=== PATIENT | male | born 1940 | race Caucasian/White ===

== ENCOUNTER → 2020-10-17 13:06 | Outpatient (CLI) | payer MEDICARE, SELFPAY ==
[2020-10-17 20:52] LABS: Total Iron Binding Capacity 296 ug/dL (261-462)
[2020-10-17 21:06] LABS: Add Manual Diff / Slide Review NO; Basophils Absolute Auto 100 /uL (0-100); Basophils Percent Auto 0.9 % (0-2); Eosinophils Absolute Auto 300 /uL (0-450); Eosinophils Percent Auto 3.3 % (2-4); Hematocrit 35.8 % (41-53); Hemoglobin 11.8 g/dL (13.5-17.5); Lymphocytes Absolute Auto 2000 /uL (1100-4500); Lymphocytes Percent Auto 23.8 % (25-40); Mean Corpuscular HGB Conc 32.8 % (30-36); Mean Corpuscular Hemoglobin 32.2 PG (26-34); Mean Corpuscular Volume 98.1 fL (80-100); Monocytes Absolute Auto 900 /uL (0-900); Monocytes Percent Auto 10.4 % (3-14); Neutrophils Absolute Auto 5100 /uL (1500-7000); Neutrophils Percent Auto 61.6 % (50-75); Platelet Count 264 X10^3/uL (150-400); Red Blood Cell Count 3.65 X10^6/uL (4.5-5.9); White Blood Cell Count 8.3 X10^3/uL (4.5-11.0)
[2020-10-17 21:14] LABS: Thyroid Stimulating Hormone 23.3 uIU/mL (0.47-4.68)
[2020-10-17 21:18] LABS: Ferritin 21 ng/mL (18-464)
[2020-10-18 05:01] LABS: Iron 85 ug/dL (49-181); Percent Iron Saturation 29 % (20-50)
== END ==
PROVIDERS: PCP Family Medicine; Visit Provider Family Medicine
DX: D64.9 Anemia, unspecified (principal); E03.8 Other specified hypothyroidism
CPT/HCPCS: 82728; 83540; 83550; 84443; 85025

== ENCOUNTER → 2020-12-31 11:56 | Outpatient (CLI) | payer MEDICARE, SELFPAY ==
[2020-12-31 21:26] LABS: Thyroid Stimulating Hormone 13.3 uIU/mL (0.47-4.68)
== END ==
PROVIDERS: PCP Family Medicine; Referring Provider Internal Medicine; Visit Provider Internal Medicine
DX: E03.8 Other specified hypothyroidism (principal)
CPT/HCPCS: 84443

== ENCOUNTER → 2021-03-12 11:04 | Outpatient (CLI) | payer MEDICARE, SELFPAY ==
[2021-03-12 20:15] LABS: Thyroid Stimulating Hormone 2.41 uIU/mL (0.47-4.68)
== END ==
PROVIDERS: PCP Family Medicine; Visit Provider Internal Medicine
DX: E03.8 Other specified hypothyroidism (principal); E06.3 Autoimmune thyroiditis
CPT/HCPCS: 84443

== ENCOUNTER → 2022-01-29 13:07 | Outpatient (CLI) | payer MEDICARE, SELFPAY ==
[2022-01-29 20:05] LABS: Add Manual Diff / Slide Review NO; Basophils Absolute Auto 100 /uL (0-100); Eosinophils Absolute Auto 200 /uL (0-450); Eosinophils Percent Auto 2.6 % (2-4); Lymphocytes Absolute Auto 1700 /uL (1100-4500); Lymphocytes Percent Auto 21.7 % (25-40); Mean Corpuscular HGB Conc 33.4 % (30-36); Mean Corpuscular Hemoglobin 32.3 PG (26-34); Mean Corpuscular Volume 96.9 fL (80-100); Monocytes Absolute Auto 700 /uL (0-900); Monocytes Percent Auto 8.8 % (3-14); Neutrophils Absolute Auto 5300 /uL (1500-7000); Neutrophils Percent Auto 65.9 % (50-75); Platelet Count 247 X10^3/uL (150-400); Red Blood Cell Count 3.41 X10^6/uL (4.5-5.9); Red Cell Distribution Width 14.4 % (11.6-14.8)
[2022-01-29 20:07] LABS: HEMOLYSIS < 15 (0-50); Iron 100 ug/dL (49-181)
[2022-01-29 20:10] LABS: Alanine Aminotransferase 20 IU/L (<50); Albumin 3.7 g/dL (3.5-5.0); Albumin Globulin Ratio 1.3 (1.0-2.8); Alkaline Phosphatase 65 U/L (38-126); Aspartate Aminotransferase 38 IU/L (17-59); BUN Creatinine Ratio 19.3 (6-22); Bilirubin Total 0.4 mg/dL (0.2-1.3); Blood Urea Nitrogen 22 mg/dL (9-20); Calcium 8.8 mg/dL (8.4-10.2); Carbon Dioxide 32 mmol/L (22-32); Chloride 101 mmol/L (98-107); Estimated Glomerular Filt Rate > 60 mL/min (>60); Globulin 2.9 g/dL (1.7-4.1); Glucose 110 mg/dL (80-110); HEMOLYSIS < 15 (0-50); Potassium 3.6 mmol/L (3.4-5.1); Sodium 137 mmol/L (137-145); Total Protein 6.6 g/dL (6.3-8.2)
[2022-01-29 20:18] LABS: Percent Iron Saturation 37 % (20-50); Total Iron Binding Capacity 273 ug/dL (261-462); Transferrin 221 mg/dL (206-381)
[2022-01-29 20:38] LABS: TSH w/ Reflex to FT4 1.38 uIU/mL (0.47-4.68)
[2022-01-29 20:57] LABS: Vitamin B12 391 pg/mL (239-931)
== END ==
PROVIDERS: PCP Physician Assistant; Visit Provider Internal Medicine
DX: E53.8 Deficiency of other specified B group vitamins (principal); R63.4 Abnormal weight loss
CPT/HCPCS: 80053; 82607; 83540; 83550; 84443; 85025

== ENCOUNTER → 2022-11-06 13:06 | Outpatient (CLI) | payer MEDICARE, SELFPAY ==
[2022-11-06 20:22] LABS: Free T4, Direct Thyroxine 1.41 ng/dL (0.78-2.19)
[2022-11-06 20:31] LABS: Blood Urea Nitrogen 27 mg/dL (9-20); Calcium 9.1 mg/dL (8.4-10.2); Carbon Dioxide 31 mmol/L (22-32); Chloride 99 mmol/L (98-107); Estimated Glomerular Filt Rate 49 mL/min (>60); Glucose 90 mg/dL (80-110); HEMOLYSIS < 15 (0-50); Sodium 136 mmol/L (137-145)
[2022-11-06 20:32] LABS: Potassium 4.1 mmol/L (3.4-5.1)
[2022-11-06 20:36] LABS: Thyroid Stimulating Hormone 8.16 uIU/mL (0.47-4.68)
== END ==
PROVIDERS: PCP Physician Assistant; Visit Provider Internal Medicine
DX: E03.8 Other specified hypothyroidism (principal); E06.3 Autoimmune thyroiditis; E87.6 Hypokalemia
CPT/HCPCS: 80048; 84439; 84443

== ENCOUNTER → 2023-01-07 14:34 | Outpatient (CLI) | payer MEDICARE, SELFPAY ==
[2023-01-08 05:14] LABS: Free T4, Direct Thyroxine 1.31 ng/dL (0.78-2.19)
[2023-01-08 05:28] LABS: Thyroid Stimulating Hormone 15.1 uIU/mL (0.47-4.68)
== END ==
PROVIDERS: PCP Physician Assistant; Visit Provider Internal Medicine
DX: E03.8 Other specified hypothyroidism (principal); E06.3 Autoimmune thyroiditis
CPT/HCPCS: 84439; 84443

== ENCOUNTER → 2023-03-02 14:35 | Outpatient (CLI) | payer MEDICARE, SELFPAY ==
[2023-03-02 20:58] LABS: TSH w/ Reflex to FT4 6.01 uIU/mL (0.47-4.68)
[2023-03-02 23:33] LABS: Free T4, Direct Thyroxine 1.58 ng/dL (0.78-2.19)
== END ==
PROVIDERS: PCP Physician Assistant; Visit Provider Internal Medicine Geriatric Medicine
DX: E03.8 Other specified hypothyroidism (principal); E06.3 Autoimmune thyroiditis
CPT/HCPCS: 84439; 84443

== ENCOUNTER → 2023-12-10 14:31 | Outpatient (CLI) | payer MEDICARE, SELFPAY ==
[2023-12-10 21:34] LABS: BUN Creatinine Ratio 29.5 (6-22); Blood Urea Nitrogen 38 mg/dL (9-20); Calcium 9.3 mg/dL (8.4-10.2); Carbon Dioxide 29 mmol/L (22-32); Chloride 104 mmol/L (98-107); Estimated Glomerular Filt Rate 55 mL/min (>60); Glucose 116 mg/dL (80-110); HEMOLYSIS < 15 (0-50); Potassium 4.2 mmol/L (3.4-5.1); Sodium 137 mmol/L (137-145)
[2023-12-10 22:16] LABS: Free T4, Direct Thyroxine 1.63 ng/dL (0.78-2.19)
[2023-12-10 22:30] LABS: Thyroid Stimulating Hormone 2.23 uIU/mL (0.47-4.68)
== END ==
PROVIDERS: Visit Provider Internal Medicine
DX: E03.8 Other specified hypothyroidism (principal); E06.3 Autoimmune thyroiditis; N28.9 Disorder of kidney and ureter, unspecified
CPT/HCPCS: 80048; 84439; 84443

== ENCOUNTER → 2024-01-12 14:29 | Outpatient (CLI) | payer MEDICARE, SELFPAY ==
[2024-01-12 20:11] LABS: BUN Creatinine Ratio 18.9 (6-22); Blood Urea Nitrogen 25 mg/dL (9-20); Calcium 9.3 mg/dL (8.4-10.2); Carbon Dioxide 31 mmol/L (22-32); Chloride 104 mmol/L (98-107); Estimated Glomerular Filt Rate 53 mL/min (>60); Glucose 110 mg/dL (80-110); HEMOLYSIS < 15 (0-50); Potassium 4.1 mmol/L (3.4-5.1); Sodium 137 mmol/L (137-145)
== END ==
PROVIDERS: Visit Provider Internal Medicine
DX: N28.9 Disorder of kidney and ureter, unspecified (principal)
CPT/HCPCS: 80048

== ENCOUNTER → 2024-09-25 13:36 | Outpatient (CLI) | payer MEDICARE, SELFPAY ==
--- NOTE | 2024-09-25 13:37 | DI.MRI.S_ITS ---
PROCEDURE: MR STROKE Pre- and post-contrast brain MRI, non-contrast brain MR angiogram, pre- and postcontrast neck MR angiogram INDICATIONS: SLURRED SPEECH,ESSENTIAL HTN,STROKE LIKE SYMPTOMS TECHNIQUE: Brain: Noncontrast axial T1 spin echo, axial T2 fast spin echo, sagittal and axial FLAIR, coronal T2 fast spin echo, axial gradient echo, axial diffusion and ADC through the brain. After the administration of contrast, axial 3D VIBE of the cranial vasculature and brain. Brain MRA: Non-contrast 3-D time of flight MR angiogram, with multiple dgzjhio-wgarxzipq-amvrnrluep (MIP) reformats performed. Neck MRA: Axial and sagittal TruFISP through the neck. Coronal dynamic MR angiogram during administration of contrast in the arterial and venous phases, with 3-dimenstional jctxirl-taljlawbv-sxkijwtjzt (MIP) reformats constructed from subtraction images. COMPARISON: None. FINDINGS: Image quality: Excellent. BRAIN: CSF spaces: Ventricles are normal in size and shape. Basal cisterns are patent. No extra-axial fluid collections. Brain: No intracranial bleeds or mass effects. Thomas-white matter interface is normal. Diffusion weighted images show no acute infarct. Mild diffuse cerebral volume loss. Mild degree of patchy high FLAIR signal within the periventricular subcortical white matter. Brainstem appears normal. Normal intravascular flow voids are present. No abnormal intracranial enhancement. Skull and face: Calvarial marrow signal is normal. Orbits appear normal. Sinuses: Mild bilateral maxillary sinus mucosal thickening. Mastoids are clear. BRAIN MR ANGIOGRAM: Anterior circulation: Intracranial internal carotid arteries are normal in size and enhancement. The flow within the paired anterior cerebral arteries is normal and symmetric. The flow within the middle cerebral arteries is normal and symmetric. The anterior communicating artery is seen. No stenoses, occlusions, or aneurysms. Posterior circulation: The visualized portions of the vertebral arteries demonstrate normal caliber, and join to form a normal appearing basilar artery. The flow within the posterior cerebral arteries is normal and symmetric. No stenoses, occlusions, or aneurysms. NECK MR ANGIOGRAM: Carotids: Great vessels demonstrate a conventional anatomy as they arise from the aortic arch. The origins of the common carotid arteries appear patent. The calibers and courses of both common carotid arteries are normal. Mild, roughly 10% stenoses of the proximal aspects of the internal carotid arteries bilaterally Posterior circulation: The origins of the vertebral arteries appear patent. More superior portions of both vertebral arteries demonstrate normal course and caliber, and join to form a normal appearing basilar artery. Miscellaneous: Subclavian arteries appear patent. Pre-contrast images through the neck show no soft tissue abnormalities. IMPRESSION: BRAIN MRI: 1. No acute process. No recent infarct. 2. Volume loss and small vessel ischemic disease. BRAIN MR ANGIOGRAM: Negative cerebral MR angiography. NECK MR ANGIOGRAM: 1. Mild bilateral internal carotid artery stenosis. 2. Patent bilateral vertebral arteries. Dictated by: Roselia Rodriguez M.D. on 09/26/2024 at 11:23 Approved by: Roselia Rodriguez M.D. on 09/26/2024 at 11:28
== END ==
LOC: MRI 13:37
PROVIDERS: Referring Provider Internal Medicine; Visit Provider Internal Medicine
DX: R47.81 Slurred speech (principal); I10 Essential (primary) hypertension; R29.90 Unspecified symptoms and signs involving the nervous system; I67.82 Cerebral ischemia; I65.23 Occlusion and stenosis of bilateral carotid arteries
CPT/HCPCS: 70544; 70549; 70553; A9579

== ENCOUNTER → 2024-10-06 12:02 | Outpatient (CLI) | payer MEDICARE, SELFPAY ==
[2024-10-06 19:32] LABS: BUN Creatinine Ratio 17.9 (6-22); Blood Urea Nitrogen 21 mg/dL (9-20); Calcium 9.4 mg/dL (8.4-10.2); Carbon Dioxide 30 mmol/L (22-32); Chloride 99 mmol/L (98-107); Cholesterol 168 mg/dL (140-199); Estimated Glomerular Filt Rate > 60 mL/min (>60); Glucose 96 mg/dL (80-110); HDL Cholesterol 69 mg/dL (40-60); HEMOLYSIS < 15 (0-50); LDL Cholesterol Calculated 87 mg/dL (<100); Sodium 136 mmol/L (137-145); Triglycerides 61 mg/dL (35-150)
[2024-10-06 19:43] LABS: Hemoglobin A1C% w Est Avg Glu 5.5 % (4.0-6.0)
[2024-10-06 19:49] LABS: Free T4, Direct Thyroxine 1.57 ng/dL (0.78-2.19)
[2024-10-06 20:03] LABS: Thyroid Stimulating Hormone 3.96 uIU/mL (0.47-4.68)
== END ==
PROVIDERS: Visit Provider Internal Medicine
DX: G45.9 Transient cerebral ischemic attack, unspecified (principal); E06.3 Autoimmune thyroiditis; N28.9 Disorder of kidney and ureter, unspecified
CPT/HCPCS: 80048; 80061; 83036; 84439; 84443

== ENCOUNTER → 2025-03-09 10:01 | Outpatient (CLI) | payer MEDICARE, SELFPAY ==
[2025-03-09 19:55] LABS: Add Manual Diff / Slide Review NO; Hematocrit 33.8 % (41-53); Hemoglobin 11.7 g/dL (13.5-17.5); Lymphocytes Absolute Auto 2100 /uL (1100-4500); Mean Corpuscular HGB Conc 34.6 % (30-36); Mean Corpuscular Hemoglobin 33.2 PG (26-34); Mean Corpuscular Volume 96.0 fL (80-100); Platelet Count 246 X10^3/uL (150-400)
[2025-03-09 19:59] LABS: Blood Urea Nitrogen 22 mg/dL (9-20); Calcium 9.4 mg/dL (8.4-10.2); Carbon Dioxide 29 mmol/L (22-32); Chloride 102 mmol/L (98-107); Cholesterol 160 mg/dL (140-199); Estimated Glomerular Filt Rate > 60 mL/min (>60); Glucose 93 mg/dL (70-99); HDL Cholesterol 70 mg/dL (40-60); HEMOLYSIS < 15 (0-50); Potassium 4.1 mmol/L (3.4-5.1); Sodium 136 mmol/L (137-145); Triglycerides 65 mg/dL (35-150)
[2025-03-09 20:18] LABS: Free T4, Direct Thyroxine 1.57 ng/dL (0.78-2.19)
[2025-03-09 20:21] LABS: Hemoglobin A1C% w Est Avg Glu 5.9 % (4.0-6.0)
[2025-03-09 20:32] LABS: Thyroid Stimulating Hormone 6.22 uIU/mL (0.47-4.68)
== END ==
PROVIDERS: Visit Provider Internal Medicine
DX: G45.9 Transient cerebral ischemic attack, unspecified (principal); N18.31 Chronic kidney disease, stage 3a; Z86.73 Personal history of transient ischemic attack (TIA), and cerebral infarction without residual deficits; E06.3 Autoimmune thyroiditis; D49.0 Neoplasm of unspecified behavior of digestive system
CPT/HCPCS: 80048; 80061; 83036; 84439; 84443; 85025